=== PATIENT | male | born 1990 | race Caucasian/White ===

== ENCOUNTER 2025-05-19 20:25 | Emergency (ER) | payer MEDICARE, MEDICAID ==
[~2025-05-19] VITALS: Ht 177.8 cm; Wt 142.0 kg
[2025-05-19 20:27] VITALS: TEMP 100.5; O2SAT 96
[2025-05-19 20:53] VITALS: TEMP 38.7
[2025-05-19 21:17] LABS: BASOPHILS % 0.6 % (0.0-2.0); EOSINOPHILS % 0.1 % (0.0-5.0); HEMATOCRIT. 45.9 % (42.0-52.0); HEMOGLOBIN. 15.2 g/dL (14.0-18.0); LYMPHOCYTES % 8.4 % (20.0-50.0); MEAN PLATELET VOLUME 9.6 fl (7.4-10.4); MONOCYTES % 6.8 % (2.0-8.0); NEUTROPHILS % 84.1 % (40.0-76.0); PLATELET 157 x1000/uL (130-400); RED BLOOD CELL COUNT 5.45 mill/uL (4.7-6.1); RED CELL DISTRIBUTION WIDTH 13.6 % (11.6-14.6)
[2025-05-19 21:31] LABS: CREATININE 1.0 mg/dL (0.6-1.3); UREA NITROGEN BLOOD 11 mg/dL (9-23)
[2025-05-19] MEDS ORDERED: CEPH500C2 MT (22:02)
[2025-05-19] MEDS: CEPHALEXIN 250MG CAPSULE PO ONE (22:13)
[2025-05-19] MEDS: ACETAMINOPHEN 325MG TABLET PO ONE (22:13)
[2025-05-19 22:16] VITALS: BP 122/80; PULSE 111; RESP 20; O2SAT 100
== END 2025-05-19 23:59 | disposition home or self-care (01) ==
LOC: ER 20:25
DX: L03.115 Cellulitis of right lower limb (principal); F20.9 Schizophrenia, unspecified; F31.9 Bipolar disorder, unspecified; I10 Essential (primary) hypertension; J45.909 Unspecified asthma, uncomplicated; Z88.5 Allergy status to narcotic agent; Z88.6 Allergy status to analgesic agent
CPT/HCPCS: 36415; 80048; 83605; 85025; 93971; 99284